=== PATIENT | female | born 1945 | race Asian ===

== ENCOUNTER 2017-11-11 11:42 | Emergency (ER) | payer MEDICARE, OTHER ==
[~2017-11-11] VITALS: Ht 160 cm; Wt 77.3 kg
[~2017-11-11 11:42] MED LIST: APIDRA SC; ASPI325T PO; CLOP75 PO; CYAN1000P IM; FENO50TA PO; GLYB1TAB51 PO; LANTUSP SQ; LASI20TA PO; LEVO125T48 PO; LISI40TA PO; POTA-243 PO; SIMV20 PO; VITA400C28 PO
[2017-11-11 12:16] VITALS: BP 213/88; PULSE 89; RESP 18; TEMP 97.9; O2SAT 97
[2017-11-11 15:12] LABS: AUTOMATED NEUTROPHIL # 6.4 TH/MM3 (1.8-7.7); BASOPHIL # 0.1 TH/MM3 (0-0.2); BASOPHIL % 0.8 % (0.0-2.0); EOSINOPHIL # 0.1 TH/MM3 (0-0.4); EOSINOPHIL % 1.5 % (0.0-4.0); HEMATOCRIT 43.3 % (35.0-46.0); HEMOGLOBIN 14.9 GM/DL (11.6-15.3); LYMPH % 25.9 % (9.0-44.0); LYMPHOCYTE # 2.5 TH/MM3 (1.0-4.8); MEAN CELL VOLUME 91.6 FL (80.0-100.0); MEAN CORPUSCULAR HEMOGLOBIN 31.4 PG (27.0-34.0); MEAN CORPUSCULAR HGB CONC 34.3 % (32.0-36.0); MEAN PLATELET VOLUME 7.1 FL (7.0-11.0); MONO % 5.1 % (0.0-8.0); MONOCYTE # 0.5 TH/MM3 (0-0.9); NEUT % 66.7 % (16.0-70.0); PLATELET COUNT 405 TH/MM3 (150-450); RED BLOOD COUNT 4.73 MIL/MM3 (4.00-5.30); RED CELL DISTRIBUTION WIDTH 13.1 % (11.6-17.2); WHITE BLOOD COUNT 9.5 TH/MM3 (4.0-11.0)
[2017-11-11 15:25] VITALS: BP 197/80; PULSE 74; RESP 16; O2SAT 98
[2017-11-11] MEDS ORDERED: GLYB5TAB3 PO (15:25)
[2017-11-11] MEDS ORDERED: ASPI-516 CHEW (15:25)
[2017-11-11] MEDS ORDERED: LISI40TA PO (15:25)
[2017-11-11] MEDS ORDERED: LANTUS2P SQ (15:25)
[2017-11-11] MEDS ORDERED: CYAN1000P IM (15:25)
[2017-11-11] MEDS ORDERED: PLAV75TA29 PO (15:25)
[2017-11-11] MEDS ORDERED: VITA500T4 IM (15:25)
[2017-11-11] MEDS ORDERED: DULA10IN SQ (15:25)
[2017-11-11] MEDS ORDERED: KLOR10TA PO (15:25)
[2017-11-11] MEDS ORDERED: VITA1000 PO (15:25)
[2017-11-11] MEDS ORDERED: ZOCO20TA PO (15:25)
[2017-11-11] MEDS ORDERED: LEVO125T50 PO (15:25)
[2017-11-11] MEDS ORDERED: FURO1TAB62 PO (15:25)
[2017-11-11] MEDS ORDERED: FISHCAP4 PO (15:25)
--- NOTE | 2017-11-11 15:37 | PD ---
HPI Chief Complaint: Hypertension Time Seen by Provider: 15:10 Travel History International Travel<30 days: No Contact w/Intl Traveler<30days: No Traveled to known affect area: No History of Present Illness HPI 72-year-old female presents to the emergency department with concern of high blood pressure after having her teeth pulled today. She was sent here by her dentist. She has history of hypertension and took her lisinopril 40 mg this morning. She said her blood pressure was normal prior to the procedure. She denies headache, chest pain, shortness of breath, abdominal pain, nausea, vomiting, dizziness, feeling faint, diaphoresis. Denies any pain at all, including oral pain. Does not check her blood pressures at home, so does not know her baseline. No known aggravating or relieving factors. Duration unknown. Onset unknown. Symptoms are moderate in severity. Primary care provider is Dr. Maier. No known allergies. History of hypertension, hypothyroidism, IDDM. Has no other medical complaints. No modifying factors or associated signs or symptoms. PFSH Past Medical History Blood Disorders: No Cancer: No High Cholesterol: Yes Chemotherapy: No Diabetes: Yes Patient Takes Glucophage: No Glaucoma: No Genitourinary: No Hepatitis: No Hiatal Hernia: No Hypertension: Yes Immune Disorder: No Medical other: Yes (STROKE) Musculoskeletal: No Neurologic: No Psychiatric: No Reproductive: No Respiratory: No Radiation Therapy: No Thyroid Disease: Yes Tetanus Vaccination: Unknown Influenza Vaccination: Yes Past Surgical History Abdominal Surgery: No AICD: No Arteriovenous Shunt: No Cardiac Surgery: No Ear Surgery: No Endocrine Surgery: No Eye Surgery: Yes (CATARACT EXTRACT LEFT EYE) Genitourinary Surgery: Yes (BLADDER "LIFT") Gynecologic Surgery: No Insulin Pump: No Joint Replacement: No Oral Surgery: No Pacemaker: No Thoracic Surgery: No Social History Alcohol Use: No Tobacco Use: No Substance Use: No Allergies-Medications (Allergen,Severity, Reaction): Coded Allergies: No Known Allergies (Verified Adverse Reaction, Unknown, 11/11/17) Reported Meds & Prescriptions Reported Meds & Active Scripts Active Reported Trulicity Inj (Dulaglutide Inj) 0.75 Mg/0.5 Ml Pen 0.75 Mg SQ Q7D Zocor (Simvastatin) 20 Mg Tab 20 Mg PO HS Klor-Con 10 (Potassium Chloride) 10 Meq Tab 10 Meq PO DAILY Lisinopril 40 Mg Tab 40 Mg PO DAILY Levoxyl (Levothyroxine Sodium) 125 Mcg Tab 125 Mcg PO DAILY Glyburide 5 Mg Tab 5 Mg PO DAILY Take with meals at the same time each day Lasix (Furosemide) 20 Mg Tab 20 Mg PO DAILY Fish Oil + D3 (Fish Oil-Cholecalciferol) 1,200-1,000 Mg-Unit Cap 1 Cap PO DAILY Cyanocobalamin Inj (Cyanocobalamin) 1,000 Mcg/Ml Inj 1,000 Mcg IM Q30D Vitamin B-12 (Cyanocobalamin) 500 Mcg Tab 1,000 Mcg IM MONTHLY Plavix (Clopidogrel Bisulfate) 75 Mg Tab 75 Mg PO DAILY Vitamin D-1000 (Cholecalciferol) 1,000 Unit Tab 1,000 Units PO DAILY Aspirin 81 Mg Chew 81 Mg CHEW DAILY Lantus Inj (Insulin Glargine) 1,000 Unit/10 Ml Vial 30 Units SQ HS [Apidra] 30 U SC TIDAC Review of Systems Except as stated in HPI: all other systems reviewed are Neg Physical Exam Narrative GENERAL: Well-nourished, well-developed elderly, female patient, in no acute distress SKIN: Warm and dry. HEAD: Atraumatic. Normocephalic. EYES: Pupils equal and round. No scleral icterus. No injection or drainage. ENT: Mucosa pink and moist. Airway patent. NECK: Trachea midline. CARDIOVASCULAR: Regular rate and regular rhythm. No murmur appreciated. RESPIRATORY: No accessory muscle use. Breath sounds clear and equal bilaterally. No retractions or tachypnea. GASTROINTESTINAL: Abdomen soft, non-tender, nondistended. Bowel sounds active 4 quadrants. Nonrigid. No guarding. MUSCULOSKELETAL: No obvious deformities. No clubbing. No cyanosis. No edema. NEUROLOGICAL: Awake and alert. Oriented 3. No obvious cranial nerve deficits. Motor grossly within normal limits. Normal speech. PSYCHIATRIC: Appropriate mood and affect; insight and judgment normal. Data Data Last Documented VS Vital Signs Date Time Temp Pulse Resp B/P (MAP) Pulse Ox O2 Delivery O2 Flow Rate FiO2 11/11/17 15:25 74 16 197/80 (119) 98 Room Air 11/11/17 12:16 97.9 Orders Orders Complete Blood Count With Diff (11/11/17 12:20) Basic Metabolic Panel (Bmp) (11/11/17 12:20) Labs Laboratory Tests Test 11/11/17 14:31 White Blood Count 9.5 TH/MM3 Red Blood Count 4.73 MIL/MM3 Hemoglobin 14.9 GM/DL Hematocrit 43.3 % Mean Corpuscular Volume 91.6 FL Mean Corpuscular Hemoglobin 31.4 PG Mean Corpuscular Hemoglobin Concent 34.3 % Red Cell Distribution Width 13.1 % Platelet Count 405 TH/MM3 Mean Platelet Volume 7.1 FL Neutrophils (%) (Auto) 66.7 % Lymphocytes (%) (Auto) 25.9 % Monocytes (%) (Auto) 5.1 % Eosinophils (%) (Auto) 1.5 % Basophils (%) (Auto) 0.8 % Neutrophils # (Auto) 6.4 TH/MM3 Lymphocytes # (Auto) 2.5 TH/MM3 Monocytes # (Auto) 0.5 TH/MM3 Eosinophils # (Auto) 0.1 TH/MM3 Basophils # (Auto) 0.1 TH/MM3 CBC Comment DIFF FINAL Differential Comment Blood Urea Nitrogen 21 MG/DL Creatinine 0.96 MG/DL Random Glucose 109 MG/DL Calcium Level 9.9 MG/DL Sodium Level 141 MEQ/L Potassium Level 4.1 MEQ/L Chloride Level 105 MEQ/L Carbon Dioxide Level 27.2 MEQ/L Anion Gap 9 MEQ/L Estimat Glomerular Filtration Rate 57 ML/MIN [facility] Medical Decision Making Medical Screen Exam Complete: Yes Emergency Medical Condition: Yes Medical Record Reviewed: Yes Differential Diagnosis Hypertension, high blood pressure, stress, pain, medical clearance Narrative Course 72-year-old female with history of hypertension and sent by her dentist after having her teeth pulled with elevated blood pressure. Her blood pressure reading in the ER is 213/88. Recheck in the ER room is 220/86: right upper extremity;197/80: left upper extremity. I discussed the patient with Dr. Lomas and plan of care discussed. 1610: CBC unremarkable. BUN 21. GFR 57. Random glucose 109. Otherwise, BMP unremarkable. 1616: Repeat blood pressure 193/79. Patient is sleeping in the room comfortably. Dr. Lomas agrees with discharge and follow up with PCP. Instructed patient to continue lisinopril as prescribed and to follow-up with primary care provider for blood pressure management. Instructed patient to follow up with primary care provider. Patient verbalizes understanding and agreement with treatment plan. Patient is medically cleared and stable for discharge. Discussed reasons to return to the emergency department. Patient agrees with treatment plan. The patients vital signs are stable and the patient is stable for outpatient follow-up and treatment. Patient discharged home, stable and in no acute distress. Diagnosis Primary Impression: High blood pressure Qualified Codes: I10 - Essential (primary) hypertension Referrals: Primary Care Physician Patient Instructions: Chronic Hypertension (ED), General Instructions, Hypertension (ED) Additional Instructions: Take blood pressure medications as prescribed Monitor blood pressure at home periodically Follow-up with your primary care provider Return to the emergency department immediately with worsening of symptoms Med/Other Pt SpecificInfo: No Change to Meds, No Meds Exist/No RX given Disposition: DISCHARGE HOME Condition: Stable Valery Kline Nov 11, 2017 15:37
[2017-11-11 15:53] LABS: BICARBONATE 27.2 MEQ/L (21.0-32.0); CALCIUM 9.9 MG/DL (8.5-10.1); CREATININE 0.96 MG/DL (0.50-1.00)
[2017-11-11 16:43] VITALS: BP 193/79; PULSE 70; RESP 14; O2SAT 98
== END 2017-11-11 17:01 | disposition home or self-care (01) ==
LOC: NEPD 11:42
DX: I10 Essential (primary) hypertension (principal); E03.9 Hypothyroidism, unspecified; E11.9 Type 2 diabetes mellitus without complications; E78.00 Pure hypercholesterolemia, unspecified; Z79.4 Long term (current) use of insulin
CPT/HCPCS: 80048; 85025; 99283